=== PATIENT | male | born 1975 | race African-American/Black ===

== ENCOUNTER 2017-08-03 09:48 | Emergency (ER) | payer SELFPAY ==
[~2017-08-03] VITALS: Ht 170.2 cm; Wt 90.0 kg
[2017-08-03 09:55] VITALS: BP 116/75; PULSE 86; RESP 15; TEMP 97.5; O2SAT 99
--- NOTE | 2017-08-03 10:07 | PD ---
HPI Chief Complaint: Pain: Acute or Chronic Time Seen by Provider: 09:57 Travel History International Travel<30 days: Yes Contact w/Intl Traveler<30days: Yes Name of Country Traveled to: [place] Traveled to known affect area: No History of Present Illness HPI 41-year-old male presents for evaluation of left hip pain. Symptoms started one month ago. He reports that he was seen at a physician's office and [place] when symptoms first started. He reports that he had an x-ray of his more spine was told that he was "out of alignment" and he was referred to a chiropractor. Prior to seeing the chiropractor he traveled to [place] for vacation. The pain has persisted since then and this prompted evaluation. He reports that the pain is a mild pain on the lateral aspect of the left hip that occasionally shoots down the lateral aspect of left thigh. Currently the patient has no pain. Pain is primarily reproduced when he is lying on his left side or with certain movements. Denies any back pain, lower extremity swelling, abdominal pain, testicular or scrotal pain. Denies any increase in physical activity. He is not currently using any medication for symptom relief. He has no other complaints at this time. History Social History Alcohol Use: Yes Tobacco Use: No Allergies-Medications (Allergen,Severity, Reaction): Coded Allergies: No Known Allergies (Verified Allergy, Unknown, 08/03/17) Review of Systems General / Constitutional: No: Fever, Chills Gastrointestinal: No: Nausea, Vomiting, Abdominal Pain Musculoskeletal: Positive: Pain, No: Limited ROM, Edema Skin: Positive Other (denies any open wounds) Physical Exam Narrative GENERAL: Well-developed well-nourished male in no acute distress SKIN: Warm and dry. HEAD: Atraumatic. Normocephalic. EYES: Pupils equal and round. No scleral icterus. No injection or drainage. ENT: No nasal bleeding or discharge. Mucous membranes pink and moist. NECK: Trachea midline. No JVD. CARDIOVASCULAR: Regular rate and rhythm. No murmur appreciated. RESPIRATORY: No accessory muscle use. Clear to auscultation. Breath sounds equal bilaterally. GASTROINTESTINAL: Abdomen soft, non-tender, nondistended. Hepatic and splenic margins not palpable. MUSCULOSKELETAL: No obvious deformities. No lower extremity edema. There is no reproducible tenderness to palpation to the spine, pelvis, hips, thighs, legs. There is no reproducible pain with range of motion activities of the lower extremities. 5 out of 5 muscle strength in lower extremity muscle groups. NEUROLOGICAL: Awake and alert. No obvious cranial nerve deficits. Motor grossly within normal limits. Normal speech. PSYCHIATRIC: Appropriate mood and affect; insight and judgment normal. Data Data Last Documented VS Vital Signs Date Time Temp Pulse Resp B/P (MAP) Pulse Ox O2 Delivery O2 Flow Rate FiO2 08/03/17 09:55 97.5 86 15 116/75 (89) 99 MDM Medical Screen Exam Complete: Yes Emergency Medical Condition: No Differential Diagnosis Meralgia paresthetica, iliotibial band syndrome, bursitis, radiculopathy Narrative Course 41-year-old male who has been experiencing pain in the lateral left thigh intermittent shooting down the left leg for the past month with no trauma, currently without pain, pain primarily when lying on his left hip. Physical examination is unremarkable. A medical screening exam was performed: At the time of evaluation the presenting medical condition was determined not to be of an emergent nature. The patient was given the option of receiving additional care, but declined. Patient was given options for additional community resources from which to obtain care. The Patient Has Been advised to seek medical attention for their presenting complaint. The patient has been advised to return to the ER at any time if an emergent condition develops. Primary Impression: Encounter for medical screening examination Isai Castillo Aug 03, 2017 10:07
== END 2017-08-03 10:11 | disposition left against medical advice (07) ==
LOC: NEPK 09:48
DX: M25.552 Pain in left hip (principal)
CPT/HCPCS: 99281